=== PATIENT | female | born 1940 | race African-American/Black ===

== ENCOUNTER 2017-04-06 13:31 | Emergency (ER) | payer OTHER ==
[2017-04-06 13:39] VITALS: BP 175/101; PULSE 78; TEMP 98.3; BMI 26.7
--- NOTE | 2017-04-06 14:16 | PDOC ---
History of Present Illness - General Chief Complaint: Injury Stated Complaint: INJURY History Source: Patient Exam Limitations: No Limitations Past History - Past Medical History Allergies/Adverse Reactions: Allergies Allergy/AdvReac Type Severity Reaction Status Date / Time aspirin AdvReac Nausea Verified 04/06/17 13:37 Home Medications: Ambulatory Orders Amlodipine Besylate [Norvasc -] 5 mg PO DAILY #30 tablet 04/06/17 Hydrocodone/Acetaminophen [[place] 5-325 Tablet] 1 each PO BID #10 tablet MDD 2 HTN: Yes - Surgical History Appendectomy: Yes - Suicide/Smoking/Psychosocial Hx Smoking History: Never smoked Hx Alcohol Use: No Drug/Substance Use Hx: No Substance Use Type: None *Physical Exam - Vital Signs Last Vital Signs Temp Pulse Resp BP Pulse Ox 98.3 F 78 16 175/101 99 04/06/17 13:35 04/06/17 13:35 04/06/17 13:35 04/06/17 13:35 04/06/17 13:35 *DC/Admit/Observation/Transfer Diagnosis at time of Disposition: Hypertension Radial head fracture Qualifiers: Encounter type: initial encounter Fracture type: closed Fracture alignment: nondisplaced Laterality: left Qualified Code(s): S52.125A - Nondisplaced fracture of head of left radius, initial encounter for closed fracture; S52.125A - Nondisplaced fracture of head of left radius, initial encounter for closed fracture - Discharge Dispostion Disposition: HOME Condition at time of disposition: Good Admit: No - Referrals Referrals: Dave Lincoln MD [Staff Physician] - Jay Sanchez MD [Staff Physician] - - Patient Instructions Printed Discharge Instructions: How to Use a Sling, Treatments for High Blood Pressure: More Than Just Taking a Pill, Recommendations to Help Prevent High Blood Pressure Additional Instructions: Discharge instructions 1. Please follow up with your primary physician within the next few days and explain that you have been seen here in the Emergency Room. I have given you a referral for a primary care physician. You must call today and schedule an appointment for evaluation because you have been found to have hypertension and not on any medications. I have given you one month's prescription for your blood pressure but you must see this physician this week. I have given you a referral to an orthopedic surgeon for evaluation of your fractured arm. Keep the splint on and in place until you follow up with your surgeon. Call and schedule this appointment today 2. If you experience any worsening of symptoms, please return to the ER 3. Rest, no heavy lifting, keep your arm in a sling, take Tylenol for pain. 4. Drink plenty of water
== END 2017-04-06 15:16 | disposition home or self-care (01) ==
LOC: JERFT 13:31
DX: S52.125A Nondisplaced fracture of head of left radius, initial encounter for closed fracture (principal); I10 Essential (primary) hypertension; W01.0XXA Fall on same level from slipping, tripping and stumbling without subsequent striking against object, initial encounter; Y93.89 Activity, other specified; Y92.89 Other specified places as the place of occurrence of the external cause; Y99.8 Other external cause status
CPT/HCPCS: 73090-TC-LT; 73130-TC-LT; 99281-25

== ENCOUNTER 2020-09-20 16:31 | Emergency (ER) | payer OTHER ==
[2020-09-20 16:44] VITALS: BMI 26.7
[2020-09-20] MEDS ORDERED: ACETAMINOPHEN 1000 MG/100 ML VIAL (NON FORMULARY) IVPB ONE (19:15)
[2020-09-20] MEDS ORDERED: ACETAMINOPHEN INJECTION 100 ML IVPB ONE (19:47)
[2020-09-20] MEDS ORDERED: VANCOMYCIN 1 GM in D5W (PRE-DOCKED) 1,000 MG/250 ML IVPB ONE (19:47)
[2020-09-20] MEDS ORDERED: CEFTRIAXONE 1,000 MG in DEXTROSE 5%-WATER - 50 ML IVPB ONE (19:47)
[2020-09-20] MEDS ORDERED: CEFTRIAXONE 1 GM/50 ML BAG ONE (20:30)
[2020-09-20 20:39] LABS: BASO % 0.1 % (0-2.0); EOS % 0.2 % (0-4.5); HEMATOCRIT 40.8 % (32.4-45.2); HEMOGLOBIN 13.7 GM/dL (10.7-15.3); LYMPH % 14.2 % (8-40); MCH 31.6 pg (25.7-33.7); MCHC 33.6 g/dl (32.0-36.0); MEAN CELL VOLUME 94.1 fl (80-96); MONO % 7.2 % (3.8-10.2); NEUT % 78.3 % (42.8-82.8); PLATELET COUNT 252 K/MM3 (134-434); RBC 4.33 M/mm3 (3.60-5.2); RDW 12.9 % (11.6-15.6); WHITE BLOOD COUNT 8.2 K/mm3 (4.0-10.0)
[2020-09-20 20:45] LABS: INR 1.02 (0.83-1.09); PROTHROMBIN TIME (PATIENT) 12.3 SEC (9.7-13.0)
[2020-09-20 20:56] LABS: POTASSIUM 4.3 mmol/L (3.5-5.1)
[2020-09-20 20:58] LABS: CALCIUM 9.2 mg/dL (8.5-10.1)
[2020-09-20 20:59] LABS: ALBUMIN 3.9 g/dl (3.4-5.0); BLOOD UREA NITROGEN 15.6 mg/dL (7-18)
[2020-09-20 21:04] LABS: BILIRUBIN,TOTAL 0.8 mg/dL (0.2-1); TOT PROT 7.6 g/dl (6.4-8.2)
[2020-09-20] MEDS ORDERED: VANCOMYCIN 1 GRAM (PRE-DOCKED) 1,000 MG/250 ML BAG IVPB ONE (21:16)
[2020-09-20 22:31] LABS: BF WBC & OTHER NUCLEATED CELLS 8824 /mm3
[2020-09-20 22:32] LABS: BODY FLUID MONOCYTE 16 %
[2020-09-20] MEDS ORDERED: KETOROLAC TROMETHAMINE 15 MG/ML VIAL IVPUSH ONE (22:50)
[2020-09-20] MEDS ORDERED: LACTATED RINGERS SOLUTION 1000 ML INFUS.BAG IV ONE (22:53)
[2020-09-21 01:01] LABS: EPI CELLS 1 /uL (0-25.1); HYALINE CASTS 0 /uL (0-3.1); PH,URINE 6.5 (5.0-8.0); URINE APPEARANCE CLEAR; URINE BACTERIA 13 /uL (0-1359); URINE BILIRUBIN NEGATIVE (NEGATIVE); URINE COLOR YELLOW; URINE GLUCOSE (UA) TRACE (NEGATIVE); URINE KETONE NEGATIVE (NEGATIVE); URINE LEUK ESTERASE NEGATIVE (NEGATIVE); URINE NITRITE NEGATIVE (NEGATIVE); URINE PROTEIN NEGATIVE (NEGATIVE); URINE RBC 11 /uL (0-23.9); URINE UROBILINOGEN 0.2 mg/dL (0.2-1.0); URINE WBC 12 /uL (0-25.8)
[2020-09-21 01:21] VITALS: BP 164/90; PULSE 64; TEMP 99.8
== END 2020-09-21 06:42 | disposition home or self-care (01) ==
LOC: JER 16:31
PROC: 3E03329 Introduction of Other Anti-infective into Peripheral Vein, Percutaneous Approach (ICD-10-PCS; principal; 2020-09-20)
PROC: 3E033NZ Introduction of Analgesics, Hypnotics, Sedatives into Peripheral Vein, Percutaneous Approach (ICD-10-PCS; 2020-09-20)
PROC: 3E033GC Introduction of Other Therapeutic Substance into Peripheral Vein, Percutaneous Approach (ICD-10-PCS; 2020-09-20)
PROC: 3E0333Z Introduction of Anti-inflammatory into Peripheral Vein, Percutaneous Approach (ICD-10-PCS; 2020-09-20)
DX: M25.461 Effusion, right knee (principal)
CPT/HCPCS: 36415; 71045-TC-FY; 73562-TC-RT-FY; 80053; 81003; 83605; 85025; 85610; 85651; 85730; 86850; 86900; 86901; 87040; 87070; 87075; 87086; 87205; 87804; 89060; 93005; 93010; 99285-25; C9803; J0131; U0003; U0005